=== PATIENT | male | born 1960 | race Caucasian/White ===

== ENCOUNTER → 2018-12-16 | Outpatient (CLI) | payer BC ==
[~2018-12-16] MED LIST: IOPAMIDOL (ISOVUE 370) 100 ML BTL IV ONE
== END ==
LOC: FIMAGING 11:16
PROVIDERS: ATTEND Internal Medicine Infectious Disease
DX: J18.9 Pneumonia, unspecified organism (principal); R59.0 Localized enlarged lymph nodes
CPT/HCPCS: Q9967